=== PATIENT | female | born 1975 | race Caucasian/White ===

== ENCOUNTER 2022-10-21 16:42 | Emergency (ER) | payer OTHER ==
[~2022-10-21] VITALS: Ht 162.6 cm; Wt 65.8 kg
[2022-10-21] MEDS ORDERED: AMBIEN5 MG PO (16:50)
[2022-10-21] MEDS ORDERED: DICLOFENAC POTA50 MG PO (19:02)
== END 2022-10-21 21:11 | disposition home or self-care (01) ==
LOC: ER 16:42
DX: M12.561 Traumatic arthropathy, right knee (principal); S50.02XA Contusion of left elbow, initial encounter; W18.39XA Other fall on same level, initial encounter; Y93.89 Activity, other specified; Y92.89 Other specified places as the place of occurrence of the external cause; J45.909 Unspecified asthma, uncomplicated